=== PATIENT | male | born 1965 | race Hispanic/Latino ===

== ENCOUNTER → 2021-06-17 | Outpatient (CLI) | payer OTHER | END | disposition home or self-care (01) | LOC: RAH 10:51 | PROVIDERS: ATTEND Orthopaedic Surgery | DX: M25.862 Other specified joint disorders, left knee (principal); R22.42 Localized swelling, mass and lump, left lower limb | CPT/HCPCS: 76882 ==

== ENCOUNTER → 2021-09-02 | Outpatient (CLI) | payer OTHER ==
[~2021-09-02] MED LIST: GADOTERATE MEGLUMINE 10 MMOL/20 ML VIAL IV ONE
== END | disposition home or self-care (01) ==
LOC: RAH 12:56
PROVIDERS: ATTEND Orthopaedic Surgery
DX: S83.282A Other tear of lateral meniscus, current injury, left knee, initial encounter (principal); M17.12 Unilateral primary osteoarthritis, left knee; M25.462 Effusion, left knee; M25.862 Other specified joint disorders, left knee; M71.22 Synovial cyst of popliteal space [Baker], left knee; X58.XXXA Exposure to other specified factors, initial encounter; Y93.89 Activity, other specified; Y92.89 Other specified places as the place of occurrence of the external cause; Y99.8 Other external cause status
CPT/HCPCS: 73723; A9575

== ENCOUNTER → 2022-11-26 | Outpatient (CLI) | payer OTHER ==
[~2022-11-26] MED LIST changes: +CARI350T26 PO; +CITA-107 PO; +GABA300C PO; -GADOTERATE MEGLUMINE 10 MMOL/20 ML VIAL IV ONE; +IBUP-2077 PO; +LISI20TA24 PO; +SIMV40TA59 PO; +TRAM50TA4 PO
== END | disposition home or self-care (01) ==
LOC: RAH 14:54
PROVIDERS: ATTEND Orthopaedic Surgery
DX: M17.12 Unilateral primary osteoarthritis, left knee (principal); M25.462 Effusion, left knee; M23.42 Loose body in knee, left knee; M25.762 Osteophyte, left knee
CPT/HCPCS: 73700

== ENCOUNTER 2022-11-30 07:02 | Observation (INO) | payer OTHER ==
[2022-11-24 13:00] VITALS: BP 185/64
[2022-11-24 13:03] LABS: BASOPHILS % (AUTO) 0.4 % (0.0-5.0); EOSINOPHILS % (AUTO) 1.9 % (0.0-8.0); HEMATOCRIT 43.3 % (42-54); LYMPHOCYTES % (AUTO) 25.5 % (21.0-51.0); MEAN CORPUSCULAR HEMOGLOBIN 30.1 pg (27.0-33.0); MEAN CORPUSCULAR HGB CONC 32.6 g/dL (32.0-36.0); MEAN CORPUSCULAR VOLUME 92.5 fL (79-99); MONOCYTES % (AUTO) 4.8 % (3.0-13.0); NEUTROPHILS % (AUTO) 67.1 % (40.0-77.0); PLATELET COUNT (AUTO) 211 K/uL (130-400); RED BLOOD CELL COUNT(AUTO) 4.68 MIL/uL (4.50-6.20); RED CELL DISTRIBUTION WIDTH 12.9 % (11.0-15.5)
[2022-11-24 13:18] LABS: CREATININE 1.3 mg/dL (0.5-1.5); POTASSIUM 4.7 mmol/L (3.5-5.1)
[2022-11-24 13:42] LABS: PROTHROMBIN TIME 10.9 SEC (9.6-11.6)
[2022-11-24 13:44] LABS: PARTIAL THROMBOPLASTIN TIME 26.4 SEC (26.3-35.5)
[2022-11-30] VITALS (26 sets, daily range): BP systolic 111–174; BP diastolic 41–95
[~2022-11-30] VITALS: Ht 170.2 cm; Wt 103.2 kg
[~2022-11-30 07:02] MED LIST changes: +CEFAZOLIN SODIUM 2 GM VIAL IVPB SCH
[2022-11-30] MEDS ORDERED: LACTATED RINGERS 1000ML 1,000 ML IV ONE (07:56)
[2022-11-30] MEDS ORDERED: POTASSIUM CHLORIDE 20MEQ/100ML 100 ML IV PRN (09:30)
[2022-11-30] MEDS ORDERED: IBUPROFEN 800 MG TAB PO PRN (09:30)
[2022-11-30] MEDS ORDERED: POTASSIUM CHLORIDE 10% ELIXIR 20 MEQ/15 ML UDCUP PO PRN (09:30)
[2022-11-30] MEDS ORDERED: LIDOCAINE HCL-MPF 1% 2ML VIAL IV PRN (09:30)
[2022-11-30] MEDS ORDERED: CARISOPRODOL 350 MG TABLET PO PRN (09:30)
[2022-11-30] MEDS ORDERED: KCL 20 MEQ ERTAB PO PRN (09:30)
[2022-11-30] MEDS ORDERED: FAMOTIDINE 20MG VIAL IV ONE (10:15)
[2022-11-30] MEDS ORDERED: TRANEXAMIC ACID 1000MG/10ML ONE (10:28)
[2022-11-30] MEDS ORDERED: SUCCINYLCHOLINE 200MG/10ML SYR ONE (10:32)
[2022-11-30] MEDS ORDERED: LIDOCAINE PF 100MG/5ML (2%) SYRINGE 5ML ONE (10:32)
[2022-11-30] MEDS ORDERED: ROCURONIUM 10MG/1ML SYR 10 MG/ML ML ONE (10:33)
[2022-11-30] MEDS ORDERED: PROPOFOL 10 MG/ML 20ML VIAL IV ONE ×2 (10:33→11:47)
[2022-11-30] MEDS ORDERED: MIDAZOLAM HCL 1 MG/ML 2ML VIAL ONE ×2 (10:33→11:47)
[2022-11-30] MEDS ORDERED: FENTANYL CITRATE PF 50 MCG/1 ML 2ML VIAL ONE ×3 (10:33→14:00)
[2022-11-30] MEDS ORDERED: GLYCOPYRROLATE 1 MG/5 ML SYRINGE ONE (10:33)
[2022-11-30] MEDS ORDERED: TRANEXAMIC ACID 1000MG/10ML IV ONE (11:03)
[2022-11-30] MEDS ORDERED: CEFAZOLIN SODIUM 2 GM VIAL IVPB ONE (11:09)
[2022-11-30] MEDS ORDERED: ONDANSETRON 4MG INJ ONE (11:37)
[2022-11-30] MEDS: TRAMADOL HCL 50 MG TABLET PO SCH ×3 (12:00→23:59)
[2022-11-30] MEDS ORDERED: NEOSTIGMINE 5MG/5ML SYR IV ONE (13:36)
[2022-11-30] MEDS ORDERED: ROPIVACAINE 0.5% 5MG/ML 30ML IJ ONE (13:54)
[2022-11-30] MEDS ORDERED: LIDOCAINE 1%-EPI 1:100,000 20 ML VIAL IJ ONE (13:55)
[2022-11-30] MEDS ORDERED: MEPERIDINE-PF 25 MG/ML SYG ONE (13:58)
[2022-11-30] MEDS ORDERED: CEFAZOLIN SODIUM 1 GM VIAL IVPB SCH (14:30)
[2022-11-30] MEDS: ACETAMINOPHEN 1,000 MG/100 ML VIAL IV SCH ×3 (15:04→21:30)
[2022-11-30] MEDS: ONDANSETRON 4MG INJ IVP PRN ×2 (15:05→22:37)
[2022-11-30] MEDS: HYDROCODONE/ACETAMINOPHEN 10/325 MG TAB PO PRN ×2 (17:16→21:32)
[2022-11-30] MEDS: 0.9%NACL 1000ML 1,000 ML IV SCH (19:30)
[2022-11-30] MEDS: CEFAZOLIN SODIUM 1 GM VIAL IVPB SCH (19:33)
[2022-11-30] MEDS: FAMOTIDINE 20MG TAB PO SCH (21:31)
[2022-11-30] MEDS: MORPHINE 4 MG SYG IVP PRN (22:38)
[2022-12-01] VITALS (7 sets, daily range): BP systolic 134–177; BP diastolic 58–93
[2022-12-01] MEDS: GABAPENTIN 300 MG CAPSULE PO PRN ×3 (01:38→20:08)
[2022-12-01] MEDS: CEFAZOLIN SODIUM 1 GM VIAL IVPB SCH (02:24)
[2022-12-01] MEDS: MORPHINE 4 MG SYG IVP PRN ×3 (02:24→18:07)
[2022-12-01] MEDS ORDERED: OXYCODONE HCL 10 MG TAB.SR.12H PO SCH (05:00)
[2022-12-01 05:03] LABS: HEMATOCRIT 33.8 % (42-54); MEAN CORPUSCULAR HEMOGLOBIN 30.1 pg (27.0-33.0); MEAN CORPUSCULAR HGB CONC 32.5 g/dL (32.0-36.0); MEAN CORPUSCULAR VOLUME 92.3 fL (79-99); RED BLOOD CELL COUNT(AUTO) 3.66 MIL/uL (4.50-6.20); RED CELL DISTRIBUTION WIDTH 12.6 % (11.0-15.5); WHITE BLOOD COUNT (AUTO) 8.9 K/uL (4.8-10.8)
[2022-12-01 05:14] LABS: CREATININE 1.3 mg/dL (0.5-1.5); POTASSIUM 3.9 mmol/L (3.5-5.1)
[2022-12-01] MEDS: 0.9%NACL 1000ML 1,000 ML IV SCH (05:14)
[2022-12-01] MEDS: TRAMADOL HCL 50 MG TABLET PO SCH ×4 (06:28→23:13)
[2022-12-01] MEDS ORDERED: ROPIVICAINE 250MG+KETOROLAC 15MG+EPINEPHRINE 0.3+CLONIDINE 80 IV PRN ×5 (08:00)
[2022-12-01] MEDS: ASPIRIN 81 MG EC TAB PO SCH ×3 (09:00→20:07)
[2022-12-01] MEDS: POLYETHYLENE GLYCOL 3350 17 GM POWD.PACK PO SCH (09:08)
[2022-12-01] MEDS: CITALOPRAM 20 MG TABLET PO SCH (09:08)
[2022-12-01] MEDS: FAMOTIDINE 20MG TAB PO SCH ×2 (09:09→20:07)
[2022-12-01] MEDS: LISINOPRIL 20 MG TABLET PO SCH (10:05)
[2022-12-01] MEDS: HYDROCODONE/ACETAMINOPHEN 5/325 MG TAB PO PRN (20:08)
[2022-12-02] MEDS: OXYCODONE HCL 10 MG TAB.SR.12H PO PRN ×2 (02:54→10:19)
[2022-12-02 03:36] VITALS: BP 124/82
[2022-12-02] MEDS: TRAMADOL HCL 50 MG TABLET PO SCH ×2 (05:13→12:29)
[2022-12-02 07:42] VITALS: BP 121/80
[2022-12-02] MEDS: ASPIRIN 81 MG EC TAB PO SCH (08:24)
[2022-12-02] MEDS: POLYETHYLENE GLYCOL 3350 17 GM POWD.PACK PO SCH (08:24)
[2022-12-02] MEDS: LISINOPRIL 20 MG TABLET PO SCH (08:24)
[2022-12-02] MEDS: FAMOTIDINE 20MG TAB PO SCH (08:25)
[2022-12-02] MEDS: CITALOPRAM 20 MG TABLET PO SCH (08:25)
[2022-12-02 11:20] VITALS: BP 118/76
[2022-12-02] MEDS: HYDROCODONE/ACETAMINOPHEN 5/325 MG TAB PO PRN (14:58)
[2022-12-02 16:20] VITALS: BP 139/89
[2022-12-03] MEDS ORDERED: BISACODYL 10 MG SUPP.RECT RC PRN (09:30)
== END 2022-12-02 17:39 | disposition home or self-care (01) ==
LOC: DAH 07:02 → DAHIP 07:03 → 4AH 15:25
PROVIDERS: ADMIT Orthopaedic Surgery; ATTEND Orthopaedic Surgery
DX: M17.12 Unilateral primary osteoarthritis, left knee (principal); Z20.822 Contact with and (suspected) exposure to COVID-19; M23.001 Cystic meniscus, unspecified lateral meniscus, left knee; I10 Essential (primary) hypertension; Z79.82 Long term (current) use of aspirin; Z79.899 Other long term (current) drug therapy; Z98.890 Other specified postprocedural states
CPT/HCPCS: 80048 ×2; 85025; 85610; 85730; 87426; 36415 ×2; 87641; 20985; 27447; 96365; 96375; 64447; 87070; 87076; 88304; 97161; 97039 ×5; 97530 ×5; 96376; 96366; 85027; 97116 ×4; A6260; G0378 ×48; A4663; J7030; J7120; J3490 ×5; J3010 ×3; J0690 ×4; J0330; J2710; J2001; J2250 ×2; J2704 ×2; J2405 ×3; J2270 ×4; J2175; J2795; A6223; A6219; G0168; A4649 ×3; A6212; C1776 ×4; A5120; A4215; A4223; A4222; A4221

== ENCOUNTER → 2024-05-30 | Outpatient (CLI) | payer OTHER ==
[~2024-05-30] MED LIST changes: -CEFAZOLIN SODIUM 2 GM VIAL IVPB SCH
== END | disposition home or self-care (01) ==
LOC: RAH 07:31
PROVIDERS: ATTEND Internal Medicine Cardiovascular Disease
DX: Z13.6 Encounter for screening for cardiovascular disorders (principal)
CPT/HCPCS: 75571